=== PATIENT | female | born 1975 | race American Indian/Alaskan Native ===

== ENCOUNTER 2020-09-29 08:00 | Outpatient (CLI) | payer OTHER | END 2020-09-29 08:30 | disposition home or self-care (01) | LOC: PPH VACUNA 08:00 | DX: Z23 Encounter for immunization (principal) ==

== ENCOUNTER 2020-10-26 08:00 | Outpatient (CLI) | payer OTHER | END 2020-10-26 08:30 | disposition home or self-care (01) | LOC: PPH VACUNA 08:00 | DX: Z23 Encounter for immunization (principal) ==

== ENCOUNTER 2021-05-07 14:50 | Outpatient (CLI) | payer OTHER | END 2021-05-07 15:00 | disposition home or self-care (01) | LOC: PPH VACUNA 14:50 | PROVIDERS: ATTEND Emergency Medicine Pediatric Emergency Medicine | DX: Z23 Encounter for immunization (principal) ==